=== PATIENT | male | born 1990 | race Caucasian/White ===

== ENCOUNTER 2018-10-11 15:07 | Emergency (ER) | payer OTHER ==
--- NOTE | 2018-10-11 15:10 | EDPHY ---
H & P Time Seen by Provider: 10/11/18 15:10 HPI/ROS: HPI: This is a 28-year-old male who presents with Chief Complaint: Left hand laceration Location: Left hand Quality: Laceration Duration: 3-5 hours prior to arrival Signs and Symptoms: No bleeding, no radiation, no numbness, no weakness, no tingling, no incontinence, no decreased range of motion, no swelling, no pain, no fever Timing: Acute Severity: Mild Context: Patient is right-hand dominant, presents with complaints of cutting the dorsal aspect of his left hand near his wrist when he accidentally dropped a T cattle and broke on the counter. He reports that a piece of it stuck into his left hand. He washed with soap and water and applied a dressing. He lost his wallet and difficulty finding his insurance card which delayed his arrival to the emergency room. Tetanus booster is up-to-date. Denies pain, radiation, decreased range of motion, paresthesias Modifying Factors: Direct pressure Comment: ROS: A comprehensive 10 system review of systems is otherwise negative aside from elements mentioned in the history of present illness. MEDICAL/SURGICAL/SOCIAL HISTORY: Medical history: Generally healthy. Does not take any regular medications. Surgical history: Denies Social history: Employed. Nonsmoker. CONSTITUTIONAL: Well-developed, well-nourished, adult white male, awake and alert, no obvious distress HEENT: Atraumatic and normocephalic, PERRL, EOMI. Nares patent; no rhinorrhea; no nasal mucosal edema. Tympanic membranes clear. Oropharynx clear, no exudate and moist pink mucosa. Airway patent. No lymphadenopathy. No meningismus. Cardiovascular: Normal S1/S2, regular rate, regular rhythm, without murmur rub or gallop. PULMONARY/CHEST: Symmetrical and nontender. Clear to auscultation bilaterally. Good air movement. No accessory muscle usage. ABDOMEN: Soft, nondistended, nontender, no rebound, no guarding, no peritoneal signs, no masses or organomegaly. No CVAT. EXTREMITIES: 2/2 radial pulses, strength 5/5, left hand dorsal aspect; lateral aspect shows stellate, irregular laceration 4 cm x 3 cm with no active bleeding. Dried blood noted around the laceration. DI P, PIP, MCP joints have full range of flexion extension. Light touch sensation intact. no clubbing, no cyanosis or edema. NEUROLOGICAL: no focal neuro deficits. GCS 15. SKIN: Warm and dry, no erythema. no rash. Good capillary refill. Source: Patient Exam Limitations: No limitations - Personal History Current Tetanus Diphtheria and Acellular Pertussis (TDAP): Yes Constitutional: Initial Vital Signs Temperature (C) 36.8 C 10/11/18 15:10 Heart Rate 96 10/11/18 15:10 Respiratory Rate 18 10/11/18 15:10 Blood Pressure 108/76 10/11/18 15:10 O2 Sat (%) 95 10/11/18 15:10 O2 Delivery Mode Room Air Allergies/Adverse Reactions: No Known Allergies Allergy (Unverified 10/11/18 15:10) Home Medications: Medication Instructions Recorded NK [No Known Home Meds] 10/11/18 Medical Decision Making Procedures: Procedure: Laceration repair. Verbal consent was obtained from the patient. The ED regular, complex, 4 cm x 3 cm laceration on the left hand dorsal aspect was anesthetized in the usual fashion using 6 mL of 1% lidocaine without epinephrine. The wound was irrigated , draped and explored to its base with a gloved finger. There were no deep structures involved. No tendon injury was identified. The wound was repaired with #4; 4-0 Prolene simple interrupted pattern. Hemostasis was achieved and patient tolerated procedure well. Xeroform and clean sterile dressing applied. The procedure was performed by myself. ED Course/Re-evaluation: Vital signs reviewed and stable upon arrival. Tetanus booster up-to-date Local anesthesia provided and irrigated copiously Laceration closed with 4; 4-0 Prolene sutures Xeroform and clean sterile dressing applied Verbal and written wound care instructions provided No signs of neurovascular compromise/tenting of skin/compartment syndrome/ extremities and joints examined above and below area of concern and are neurovascularly intact. This patient was seen under the supervision of my secondary supervising physician. I evaluated and cared for this patient with attending. Differential Diagnosis: Differential diagnosis includes but is not limited to laceration, nerve injury, tendon injury, foreign body. Departure - Departure Disposition: Home, Routine, Self-Care Clinical Impression: Laceration of left hand without complication, excluding fingers Qualifiers: Encounter type: initial encounter Qualified Code(s): S61.412A - Laceration without foreign body of left hand, initial encounter Condition: Good Instructions: Care For Your Stitches (ED), Laceration (ED) Additional Instructions: Keep the dressing dry and in place for 48 hours. After 48 hours, you may remove the dressing; wash the site daily with mild soap and water; then pat dry. Apply topical antibiotic ointment and keep covered with sterile dressing until fully healed. Do not soak in a bathtub or go swimming until sutures are removed. Take Tylenol 650 mg every 4 hours and/or Ibuprofen 600 mg every 8 hours with food as needed for pain. Wound Care Follow-Up: Removal of sutures in [10-14] days. Suture removal is complimentary in uncomplicated cases. Infection or abnormal findings would require reevaluation by the MD. In that case, you may be billed. Referrals: Evelyn Nunez MD [Medical Doctor] - As per Instructions
[2018-10-11 15:12] VITALS: BP 108/76
== END 2018-10-11 15:55 | disposition home or self-care (01) ==
PROC: 0HQGXZZ Repair Left Hand Skin, External Approach (ICD-10-PCS; principal; 2018-10-11)
DX: S61.412A Laceration without foreign body of left hand, initial encounter (principal); W26.8XXA Contact with other sharp object(s), not elsewhere classified, initial encounter